=== PATIENT | female | born 1940 | race Caucasian/White ===

== ENCOUNTER 2020-11-28 08:18 | Outpatient (REF) | payer MEDICARE, SELFPAY ==
--- NOTE | ~2020-11-28 | FL_ITS ---
EXAMINATION: FL BARIUM SWALLOW CLINICAL INFORMATION: Dysphagia COMPARISON: None TECHNIQUE: Barium swallow examination is performed using fluoroscopic evaluation in addition to multiple fluoroscopic spot views. The patient is imaged both upright and prone and using both thick and thin sulfate along with effervescent granules. Barium tablet was also administered. Fluoroscopy time: 1.7 minutes DAP: 17 Gycm2 Images: 66 FINDINGS: Swallowing mechanism is normal. No aspiration or penetration is seen. There is impression on the posterior cervical esophagus from vertebral body bony osteophyte. There is abnormal esophageal motility with tertiary contractions. There is a small hiatal hernia with Schatzki ring. Barium tablet passed freely into the stomach. The patient could not tolerate supine position and evaluation for gastroesophageal reflux is limited. No gastroesophageal reflux was observed. FL/FL barium swallow IMPRESSION: Impression on the posterior cervical esophagus from vertebral body bony osteophyte. Abnormal esophageal motility. Small hiatal hernia with Schatzki ring. Very and tablet passed into the stomach. Evaluation for gastroesophageal reflux is limited as the patient could not lie flat. No gastroesophageal reflux was observed.
== END 2020-11-28 08:19 | disposition home or self-care (01) ==
LOC: HO.XRAY 08:18
PROVIDERS: PCP Family Medicine; Visit Provider Family Medicine
DX: R13.12 Dysphagia, oropharyngeal phase (principal)
CPT/HCPCS: 74220

== ENCOUNTER 2025-03-09 13:26 | Outpatient (REF) | payer MEDICARE, SELFPAY ==
--- NOTE | ~2025-03-09 | XR_ITS ---
CLINICAL HISTORY: M25.559 - Pain in unspecified hip Radiograph of the pelvis, single view Comparison: None available Findings: No fracture or dislocation. Severe degenerative change of the hips, jzlal-ikkzccv-zwex-left. Mild degenerative change of the pubic symphysis and sacroiliac joints. Moderate to severe lower lumbar degenerative change. No acute soft tissue abnormality. Impression: No acute findings. Severe degenerative change of the hips. This document has been electronically signed by: Luz Dunne MD on 03/10/2025 15:06:53
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
--- OUTSIDE RECORDS SUMMARY | 2025-03-09 15:27 | XMS_ITS | Encounter Summary ---
Author Organization [facility] Address [address] [place] [address] [place] [address] Phone Care Team Providers Care Small Parts Assembler Name Role Phone Sam Pagan DO Primary Care Provider [phone] Encounter Details Date Type Department Care Team (Late st Contact Info) Description 03/02/2025 Procedure Pass OR Admitting Dept - Virtual Department [address] [place] [address] Social History Tobacco Use Types Packs/Day Years Used Date Smoking Tobacco: Never Passive Smoke Exposure: Never Smokeless Tobacco: Never Alcohol Use Standard Drinks/Week Comments Never 0 (1 standard drink = 0.6 oz pur e alcohol) Education Answer Date Recorded Are you interested in more education? Not on nancy e 11/15/2024 Are you concerned about learning? Not on file 11/15/2024 No 11/15/2024 No 11/15/2024 Digital Access Answer Date Recorded No 11/15/2024 No 11/15/2024 Reliable internet access at home? Not on file 11/15/2024 Device with a working camera? Not on file Comments Unknown Sex and Gender Information Value Date Recorded Sex Assigned at Not on file Legal Sex Female 10:11 PM EDT Gender Identity Not on file Sexual Orientation Not on file documented as of this encounter Plan of Treatment Not on file documented as of this encounter Visit Diagnoses Not on filedocumented in this encounter Additional Health Concerns Assessment Noted Time PHQ-2 Depression Total Score: 0 12/02/19 25 1:20 PM EDT documented as of this encounter Care Teams Small Parts Assembler Relationship Specialty Start Date End Date Sam Pagan DO [address] [place] [address] [email or web address] PCP - General Family Medicine 11/11/24 documented as of this encounter Additional Source Comments The information contained in this document represents components of the legal health record. It is not the complete legal health record.[facility]
--- OUTSIDE RECORDS SUMMARY | 2025-03-09 15:27 | XMS_ITS | Encounter Summary ---
Author Organization [facility] Address [address] [facility] [address] [place] [phone] Phone Care Team Providers Care Superintendent Distribution Name Role Phone Sam Pagan DO Primary Care Provider [phone] Encounter Details Date Type Department Care Team (Late st Contact Info) Description 01/04/2025 Procedure Pass [facility], [address] [address] Social History Tobacco Use Types Packs/Day Years [...] documented as of this encounter Care Teams Superintendent Distribution Relationship Specialty Start Date End Date Sam Pagan DO [address] [place] [address] [email or web address] PCP - General Family Medicine 11/11/24 documented as of this encounter Additional Source Comments The information contained in this document represents components of the legal health record. It is not the complete legal health record.[facility]
--- OUTSIDE RECORDS SUMMARY | 2025-03-09 15:27 | XMS_ITS | Encounter Summary ---
Author Organization [facility] Address [address] [facility] [address] [place] [address] Phone Care Team Providers Care Commercial Loan Reviewer Name Role Phone Sam Pagan DO Primary Care Provider [phone] Encounter Details Date Type Department Care Team (Late st Contact Info) Description 01/04/2025 Procedure Pass [facility], [address] [address] Social History Tobacco Use Types Packs/Day Years [...] documented as of this encounter Care Teams Commercial Loan Reviewer Relationship Specialty Start Date End Date Sam Pagan DO [address] [place] [address] [email or web address] PCP - General Family Medicine 11/11/24 documented as of this encounter Additional Source Comments The information contained in this document represents components of the legal health record. It is not the complete legal health record.[facility]
--- OUTSIDE RECORDS SUMMARY | 2025-03-09 15:27 | XMS_ITS | Encounter Summary ---
Author Organization [facility] Address [address] [facility] [address] [place] [address] Phone Care Team Providers Care Device Processing Engineer Name Role Phone Sam Pagan DO Primary Care Provider [phone] Encounter Details Date Type Department Care Team (Late st Contact Info) Description 01/23/[address] [employer] [facility] [address], [place] [id number] Sam Pagan DO [address] [place] [address] [email or web address] Social History Tobacco Use Types Packs/Day Years [...] on file documented as of this encounter Progress Notes * Tariq Tyson - 01/23/2025 11:17 AM EDT Pt called in, will be changing insurance to [facility] in February. Central Support Instructor Looping (Please do not reply to this user; this inbox is not monitored.) Thank you. documented in this encounter Plan of Treatment Not on file documented as of this encounter Visit Diagnoses Not on filedocumented in this encounter Additional Health Concerns Assessment Noted Time PHQ-2 Depression Total Score: 0 12/02/19 25 1:20 PM EDT documented as of this encounter Care Teams Device Processing Engineer Relationship Specialty Start Date End Date Sam Pagan DO [address] [place] [address] [email or web address] PCP - General Family Medicine 11/11/24 documented as of this encounter Additional Source Comments The information contained in this document represents components of the legal health record. It is not the complete legal health record.[facility]
--- OUTSIDE RECORDS SUMMARY | 2025-03-09 15:27 | XMS_ITS | Clinical Summary ---
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 11/08/19 25 Active losartan (COZAAR) 100 MG tablet Take 100 mg by mouth daily. 11/08/19 25 Active zg-fymeqbq-ipj -iron fm-FA-vitK (MULTI FOR HER) 18 mg iron-600 mcg-80 mcg Tab as directed. Ac tive aspirin 81 MG EC tablet Take 81 mg by mouth daily. Active metoprolol tartrate (LOPRESSOR) 75 mg Tab tablet Take 75 mg by mouth 2 (two) times a day. Active MAGNESIUM ORAL Take 300 mg by mouth. Active cholecalcifero l (VITAMIN D3) 5,000 unit tablet Take 5,000 Units by mouth daily. Active cyanocobalamin , vitamin B-12, 500 MCG tablet Take 500 mcg by mouth daily. Active glimepiride (AMARYL) 4 MG tablet Take 4 mg by mouth. 01/20/20 24 Active buPROPion (WELLBUTRIN XL) 300 MG ER 24 hr tablet Take 1 tablet (300 mg total) by mouth every morning. 90 tablet 3 12/06/19 25 Active atorvastatin (LIPITOR) 40 MG tablet Take 40 mg by mouth. 11/08/19 25 Active FREESTYLE DASH 3 PLUS SENSOR Meg 1 each by Miscellaneous route every 14 (fourteen) days. 7 each 1 01/06/20 25 Active simvastatin (ZOCOR) 40 MG tablet Take 40 mg by mouth nightly at bedtime. 025 Discontin ued(No longer taking) Active Problems Problem Noted Date Diagnosed Date Abnormal finding of diagnostic imaging Cervical spinal stenosis 02/28/2025 Spinal stenosis of lumbar re gion without neurogenic claudication 02/28/2025 Neuroforaminal stenosis of cervical spine 2024 Neuroforaminal stenosis of lumbar spine 02/29/20 Peroneal nerve palsy 11/15/2024 Type 2 diabetes mellitus 11/15/2024 Essential hypertension 11/15/2024 Assessment & Plan (12/01/2024 3:49 PM EDT): BP elevated today Recommend checking BP at home record and bring to next visit if still elevated adjust medicine Fibromyalgia 11/15/2024 Microalbuminuria due to type 2 diabetes mellitus 11/15/2024 Assessment & Plan (12/01/2024 2:02 PM EDT): Stable continue losartan Mild major depression 11/15/2024 Assessment & Plan (11/30/2024 9:12 PM EDT): In remission on Wellbutrin Mixed hyperlipidemia 11/15/2024 Assessment & Plan (11/30/2024 9:10 PM EDT): At goal on stain Obese 11/15/2024 Type 2 diabetes mellitus, co ntrolled, with renal complications 11/15/2024 Uncontrolled type 2 diabetes mellitus with hyper glycemia 11/15/2024 Assessment & Plan (12/01/2024 3:50 PM EDT): Patient not at goal declines other medications at this time continue work with diet and exercise we will readdress at next visit patient to get a hemoglobin A1c next week Resolved Problems Problem Noted Date Diagnosed Date Resolved Date Right hip pain 12/01/2024 02/28/2025 Assessment & Plan (12/01/2024 2:03 PM EDT): Patient is under transitions rn care coordinator x-ray of the hip and pelvis Follow-up with chiropractor as planned Encounters Date Type Department Care Team Description 03/02/2025 Procedure Pass OR Admitting Dept - Virtual Department [address] [place] [id number] 01/28/2025 8:49 AM EDT - 01/28/2025 11:59 PM EDT Hospital Encounter [address] [address] Rahul Mejia MD Discharge Disposition: Home or Self Care 01/28/2025 8:49 AM EDT - 01/28/2025 11:59 PM EDT Hospital Encounter [address] [address] Rahul Mejia MD Discharge Disposition: Home or Self Care 01/23/[address] [place] [address] Sam Pagan, 01/05/[address] [place] [address] Sam Pagan, Medication Refill 01/04/2025 1:00 PM EDT Office Visit [facility] [address] [place] [address] [place] [id number] Rahul Mejia MD Osteonecrosis of right hip (Primary Dx); Cervical radiculopathy; Lumbar radiculopathy; Other secondary osteoarthritis of right hip; 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; Primary osteoarthritis of left hip; Uncontrolled type 2 diabetes mellitus with hyperglycemia 01/04/2025 Procedure Pass [address] [address] 01/04/2025 Procedure Pass [facility], Mri - [address] [address] 12/19/2024 Telephone [facility] [address] [place] [address] Sam Pagan DO Referral ([facility]) from Last 3 Months Immunizations Immunization Administration Dates Next Due INFLUENZA, SPLIT VIRUS, TRIV ALENT W/ PRESERVATIVE IM 03/31/2010 Influenza Trivalent Adjuvant ed Preservative free IM 04/06/2024 Influenza, Unspecified Formulation 03/25,03/12/2020,06/13/2019,04/10,02/22/2016,03/08/2015,03/11/2014 ,03/28/2013,03/30/2012,04/14/2011,03/23,04/06/2006 Pneumococcal conjugate PCV13 03/18/2016 Pneumococcal conjugate PCV20 04/06/2024,03/25/20 Pneumococcal polysaccharide PPSV23 03/11/2014 Pneumococcal, Unspecified Formulation 05/11/2001 RSV Vaccine (bivalent) 04/17/2023 Td (adult),2 Lf Tetanus Toxo id, PF, Adsorbed 08/28/2010 Td, unspecified formulation 11/21/1998 Tdap 01/12/2013,12/20/2012 Zoster live 10/27/2011 Zoster recombinant 05/20/2023 Family History Medical History Relation Comments Bladder Cancer Brother 1 Parkinson's disease Brother 2 Diabetes type I Daughter Drug abuse Father Diabetes mellitus Mother Bladder Cancer Sister Relation Status Comments Brother 1 Brother 2 Daughter Alive Father Mother Sister Social History Tobacco Use Types Packs/Day Years Used Date Smoking Tobacco: Never Passive Smoke Exposure: Never Smokeless Tobacco: Never Tobacco Cessation:Counseling Given: Not Answered Alcohol Use Standard Drinks/Week Comments Never 0 [...] on file Sexual Orientation Not on file Last Filed Vital Signs Vital Sign Reading Time Taken Comments Blood Pressure 140/70 12/01/2024 1:31 PM EDT Pulse 73 12/01/2024 1:31 PM EDT Temperature 36.4 C (97.5 F) 12/01/2024 1:31 PM EDT Respiratory Rate - - Oxygen Saturation 97% 12/01/2024 1:31 PM EDT Inhaled Oxygen Concentration - - Weight 71.2 kg (157 lb) 01/28/2025 9:03 AM EDT Height 154.8 cm (5' 0.95 ) 01/28/2025 9:03 AM ED T Body Mass Index 29.71 01/28/2025 9:03 AM EDT Plan of Treatment Health Maintenance Due Date Last Done Comments OSTEOPOROSIS SCREENING INITIAL (ONE-TIME) 2006 Adult Td,Tdap Booster 01/12/2023 01/12/2013 , 12/20/2012, 08/28/2010, Additional history exists ZOSTER VACCINES (3 of 3) 07/15/2023 05/20/2023, 0512/2011 DIABETIC EYE EXAM 11/15/2024 10/04/2010, 07/26/2009 INFLUENZA VACCINE (#1) 2025 , 03/25/2023, 03/12/2020, Additional history exists COVID-19 VACCINE ( season) 2025 04/06/2024, 04/17/2023, 04/07/2021, Additional history exists BLOOD PRESSURE 06/02/2025 12/01/2024 HEMOGLOBIN A1C 06/07/2025 12/06/2024, 07/21/2024 DEPRESSION SCREENING 12/01/2025 12/01/2024 CREATININE LEVEL 12/06/2025 12/06/2024, 07/21/2024 POTASSIUM LEVEL 12/06/2025 12/06/2024, 07/21/2024 RSV VACCINE Completed 04/17/2023 PNEUMOCOCCAL VACCINES (50+ years) Completed 04/06/2024, 03/25/2023, 03/18/2016, Additional history exists HEPATITIS A VACCINES Aged Out No long er eligible based on patient's age to complete this topic HIB VACCINES Aged Out No longer eligi ble based on patient's age to complete this topic MENINGOCOCCAL VACCINES (ACWY) Aged Out No longer eligible based on patient's age to complete this topic MENINGOCOCCAL VACCINES (B) Aged Out N o longer eligible based on patient's age to complete this topic Medical Devices Not on file Procedures Procedure Name Priority Date/Time Associated Diagnosis Comments MRI LUMBAR SPINE (NEURO) WITHOUT CONTRAST Routine 01/28/2025 10:12 AM EDT Lumbar radiculopathy MRI CERVICAL SPINE (NEURO) FOCUS WITHOUT CONTRAST Routine 01/28/2025 9:53 AM EDT Cervical radiculopathy HEMOGLOBIN A1C Routine 12/06/2024 12:31 PM EDT Essential hypertension Mixed hyperlipidemia Uncontrolled type 2 diabetes mellitus with hyperglycemia COMPREHENSIVE METABOLIC PANEL Routine 12/06/2024 12:31 PM EDT Essential hypertension Mixed hyperlipidemia Uncontrolled type 2 diabetes mellitus with hyperglycemia from Last 3 Months or Most Recently Relevant to Health Maintenance Results * MRI LUMBAR SPINE (NEURO) WITHOUT CONTRAST (01/28/2025 10:12 AM EDT) Anatomical Region Laterality Modality L-spine Magnetic Resonan ce 01/31/2025 9:41 AM EDT Impressions 01/31/2025 10:12 AM EDT 1. Extensive degenerative disc disease and facet joint arthropathy in the cervical spine, with mild canal stenosis at multiple levels, and multilevel moderate foraminal stenosis, as discussed above. 2. Left posterior tentorial T2 hypointense lesion with susceptibility probably calcified meningioma. 3. Levoconvex scoliosis of the lumbar spine. 4. Extensive degenerative disc disease and facet joint arthropathy in the lumbar spine, with mild canal stenosis at multiple levels, and multilevel foramina stenosis, as above. 5. L3-L4 right subarticular zone/foraminal disc protrusion with encroachment of the right subarticular zone and right L4 nerve roots. 6. Other findings, as above. RECOMMENDATIONS: Brain MRI with contrast for impression # 2. Narrative 01/31/2025 10:12 AM EDT MRI CERVICAL SPINE (NEURO) FOCUS WITHOUT CONTRAST, MRI LUMBAR SPINE (NEURO) WITHOUT CONTRAST Referring clinician's provided indication for this examination in Epic: * Cervical radiculopathy, no red flags. Lumbar radiculopathy. TECHNIQUE: MRI CERVICAL SPINE (NEURO) FOCUS WITHOUT CONTRAST, MRI LUMBAR SPINE (NEURO) WITHOUT CONTRAST Multi-sequence, multi-planar MRI of the cervical spine was performed without intravenous contrast. Multi-sequence, multi-planar MRI of the lumbar spine was performed without intravenous contrast. COMPARISON: No prior cervical or lumbar spine studies FINDINGS: CERVICAL SPINE: Alignment and Vertebrae: There is mild anterolisthesis at C7-T1. Other vertebral demonstrate normal alignment. Vertebral body height is normal. No compression fracture Marrow: No bone marrow replacing lesion. Discs and Endplates: Loss of disc height at multiple levels from C3-C4 through C6-C7. Spinal Cord: No kassandra cord compression or significant signal abnormality. Centered along the posterior left tentorium there is a 1.7 x 1.4 x 2 cm heterogeneous T2 hypointense lesion with susceptibility, which may represent a calcified meningioma. It extends superiorly along the left inferior occipital convexity and inferiorly in the posterior cranial fossa, in contact and flattens a short segment of the transverse sinus. Soft Tissue: No prevertebral edema. Other findings: Scattered T2 hyperintensities noted on the right mastoid. Findings by level: C2-C3: Mild disc bulge and facet arthropathy. No high-grade spinal canal stenosis. Probably mild left foraminal stenosis. C3-C4: Disc bulge and posterior osteophytic ridging. Uncovertebral arthropathy and facet joint disease. No spinal canal stenosis. Deud-ar-liatzvup right and mild left foraminal stenosis. C4-C5: Disc/osteophyte complex. Uncovertebral arthropathy and facet joint disease. Mild spinal canal stenosis. Moderate right and mild left foraminal stenosis. C5-C6: Disc osteophyte complex. Uncovertebral arthropathy and facet joint disease. Mild spinal canal stenosis. Moderate right and mild to moderate left foraminal stenosis. C6-C7: Disc osteophyte complex. Uncovertebral arthropathy and facet joint disease. No significant spinal canal stenosis. Apge-uj-dntpffvm left and mild right foraminal stenosis. C7-T1: Mild disc bulge and facet arthropathy. No high-grade spinal canal stenosis. Mild bilateral foraminal stenosis. LUMBAR SPINE: Alignment and Vertebrae: Levoconvex scoliosis of the spine. Vertebral alignment and body heights are normal. No compression fracture. Marrow: No bone marrow replacing lesion. Discs and Endplates: There is loss of disc height and signal at L3-L4 and L4-L5. Modic type II endplate changes noted at L4-L5. There is intrinsic T2 and STIR hyperintense signal in the L3-L4 disc. There is subtle STIR hyperintense signal along the endplates without kassandra T1 hypointense signal to suspect kassandra edema. There is a Schmorl's node on the L4 superior endplate and additional smaller Schmorl's node on the L3 superior endplate. Conus: The tip of the conus ends at L1. No compression. Soft Tissues: No prevertebral edema. Other Findings: None. Findings by level: T12-L1: No spinal or foraminal stenosis. L1-L2: No spinal or foraminal stenosis. L2-L3: Mild disc bulge. Asymmetric bulging and/or small protrusion in the left foramina. Facet arthropathy. No significant spinal canal stenosis. Mild left foraminal stenosis. L3-L4: Disc bulge and osteophytic ridging. There is a right subarticular zone/foraminal disc protrusion. There is moderate encroachment of the subarticular zone and right transversing L4 nerve roots. Facet joint hypertrophy and ligamentum flavum thickening. Mild encroachment of the spinal canal. Mild to moderate right and mild left foraminal stenosis. L4-L5: Disc osteophyte complex. There is a tiny central extrusion. Facet hypertrophy and ligamentum flavum thickening. Mild spinal canal stenosis. Onox-dl-pmkcdkpl foraminal stenosis. L5-S1: Disc bulge with a small central disc protrusion abutting the transversing S1 nerve roots. Facet arthropathy. No significant spinal canal stenosis. Mild bilateral foraminal stenosis. Procedure Note Yue Jamison MD - 01/31/2025 MRI CERVICAL SPINE (NEURO) FOCUS WITHOUT CONTRAST, MRI LUMBAR SPINE(NEURO) WITHOUT CONTRAST Referring clinician's provided indication for this examination in Epic: *Cervical radiculopathy, no red flags. Lumbar radiculopathy. TECHNIQUE: MRI CERVICAL SPINE (NEURO) FOCUS WITHOUT CONTRAST, MRI LUMBARSPINE (NEURO) WITHOUT CONTRAST Multi-sequence, multi-planar MRI of the cervical spine was performedwithout intravenous contrast. Multi-sequence, multi-planar MRI of the lumbar spine was performed withoutintravenous contrast. COMPARISON: No prior cervical or lumbar spine studies FINDINGS: CERVICAL SPINE: Alignment and Vertebrae: There is mild anterolisthesis at C7-T1. Othervertebral demonstrate normal alignment. Vertebral body height is normal.No compression fracture Marrow: No bone marrow replacing lesion. Discs and Endplates: Loss of disc height at multiple levels from C3-L3tovidlo C6-C7. Spinal Cord: No kassandra cord compression or significant signal abnormality.Centered along the posterior left tentorium there is a 1.7 x 1.4 x 2 cmheterogeneous T2 hypointense lesion with susceptibility, which mayrepresent a calcified meningioma. It extends superiorly along the leftinferior occipital convexity and inferiorly in the posterior cranialfossa, in contact and flattens a short segment of the transverse sinus. Soft Tissue: No prevertebral edema. Other findings: Scattered T2 hyperintensities noted on the right mastoid. Findings by level: C2-C3: Mild disc bulge and facet arthropathy. No high-grade spinal canalstenosis. Probably mild left foraminal stenosis. C3-C4: Disc bulge and posterior osteophytic ridging. Uncovertebralarthropathy and facet joint disease. No spinal canal stenosis.Mcqi-vm-otttvrwg right and mild left foraminal stenosis. C4-C5: Disc/osteophyte complex. Uncovertebral arthropathy and facet jointdisease. Mild spinal canal stenosis. Moderate right and mild leftforaminal stenosis. C5-C6: Disc osteophyte complex. Uncovertebral arthropathy and facet jointdisease. Mild spinal canal stenosis. Moderate right and mild to moderateleft foraminal stenosis. C6-C7: Disc osteophyte complex. Uncovertebral arthropathy and facet jointdisease. No significant spinal canal stenosis. Aipy-gi-iuweewda left andmild right foraminal stenosis. C7-T1: Mild disc bulge and facet arthropathy. No high-grade spinal canalstenosis. Mild bilateral foraminal stenosis. LUMBAR SPINE: Alignment and Vertebrae: Levoconvex scoliosis of the spine. Vertebralalignment and body heights are normal. No compression fracture. Marrow: No bone marrow replacing lesion. Discs and Endplates: There is loss of disc height and signal at L3-L4 andL4-L5. Modic type II endplate changes noted at L4-L5. There is intrinsicT2 and STIR hyperintense signal in the L3-L4 disc. There is subtle STIRhyperintense signal along the endplates without akssandra T1 hypointensesignal to suspect kassandra edema. There is a Schmorl's node on the D3oiagmvbu endplate and additional smaller Schmorl's node on the L3 superiorendplate. Conus: The tip of the conus ends at L1. No compression. Soft Tissues: No prevertebral edema. Other Findings: None. Findings by level: T12-L1: No spinal or foraminal stenosis. L1-L2: No spinal or foraminal stenosis. L2-L3: Mild disc bulge. Asymmetric bulging and/or small protrusion in theleft foramina. Facet arthropathy. No significant spinal canal stenosis.Mild left foraminal stenosis. L3-L4: Disc bulge and osteophytic ridging. There is a right subarticularzone/foraminal disc protrusion. There is moderate encroachment of thesubarticular zone and right transversing L4 nerve roots. Facet jointhypertrophy and ligamentum flavum thickening. Mild encroachment of thespinal canal. Mild to moderate right and mild left foraminal stenosis. L4-L5: Disc osteophyte complex. There is a tiny central extrusion. Facethypertrophy and ligamentum flavum thickening. Mild spinal canal stenosis.Dimy-mb-meqswfle foraminal stenosis. L5-S1: Disc bulge with a small central disc protrusion abutting thetransversing S1 nerve roots. Facet arthropathy. No significant spinalcanal stenosis. Mild bilateral foraminal stenosis. IMPRESSION: 1. Extensive degenerative disc disease and facet joint arthropathy in thecervical spine, with mild canal stenosis at multiple levels, andmultilevel moderate foraminal stenosis, as discussed above. 2. Left posterior tentorial T2 hypointense lesion with susceptibilityprobably calcified meningioma. 3. Levoconvex scoliosis of the lumbar spine. 4. Extensive degenerative disc disease and facet joint arthropathy in thelumbar spine, with mild canal stenosis at multiple levels, and multilevelforamina stenosis, as above. 5. L3-L4 right subarticular zone/foraminal disc protrusion withencroachment of the right subarticular zone and right L4 nerve roots. 6. Other findings, as above. RECOMMENDATIONS: Brain MRI with contrast for impression # 2. us Rahul Mejia MD IMG MR XSPECIALTY Final Result * MRI CERVICAL SPINE (NEURO) FOCUS WITHOUT CONTRAST (01/28/2025 9:53 AM EDT) Anatomical Region Laterality Modality C-spine Magnetic Resonan ce 01/31/2025 9:41 AM EDT Impressions 01/31/2025 10:12 AM EDT 1. Extensive degenerative disc disease and facet joint arthropathy in the cervical spine, with mild canal stenosis at multiple levels, and multilevel moderate foraminal stenosis, as discussed above. 2. Left posterior tentorial T2 hypointense lesion with susceptibility probably calcified meningioma. 3. Levoconvex scoliosis of the lumbar spine. 4. Extensive degenerative disc disease and facet joint arthropathy in the lumbar spine, with mild canal stenosis at multiple levels, and multilevel foramina stenosis, as above. 5. L3-L4 right subarticular zone/foraminal disc protrusion with encroachment of the right subarticular zone and right L4 nerve roots. 6. Other findings, as above. RECOMMENDATIONS: Brain MRI with contrast for impression # 2. Narrative 01/31/2025 10:12 AM EDT MRI CERVICAL SPINE (NEURO) FOCUS WITHOUT CONTRAST, MRI LUMBAR SPINE (NEURO) WITHOUT CONTRAST Referring clinician's provided indication for this examination in Epic: * Cervical radiculopathy, no red flags. Lumbar radiculopathy. TECHNIQUE: MRI CERVICAL SPINE (NEURO) FOCUS WITHOUT CONTRAST, MRI LUMBAR SPINE (NEURO) WITHOUT CONTRAST Multi-sequence, multi-planar MRI of the cervical spine was performed without intravenous contrast. Multi-sequence, multi-planar MRI of the lumbar spine was performed without intravenous contrast. COMPARISON: No prior cervical or lumbar spine studies FINDINGS: CERVICAL SPINE: Alignment and Vertebrae: There is mild anterolisthesis at C7-T1. Other vertebral demonstrate normal alignment. Vertebral body height is normal. No compression fracture Marrow: No bone marrow replacing lesion. Discs and Endplates: Loss of disc height at multiple levels from C3-C4 through C6-C7. Spinal Cord: No kassandra cord compression or significant signal abnormality. Centered along the posterior left tentorium there is a 1.7 x 1.4 x 2 cm heterogeneous T2 hypointense lesion with susceptibility, which may represent a calcified meningioma. It extends superiorly along the left inferior occipital convexity and inferiorly in the posterior cranial fossa, in contact and flattens a short segment of the transverse sinus. Soft Tissue: No prevertebral edema. Other findings: Scattered T2 hyperintensities noted on the right mastoid. Findings by level: C2-C3: Mild disc bulge and facet arthropathy. No high-grade spinal canal stenosis. Probably mild left foraminal stenosis. C3-C4: Disc bulge and posterior osteophytic ridging. Uncovertebral arthropathy and facet joint disease. No spinal canal stenosis. Eeki-jq-lcwyeuso right and mild left foraminal stenosis. C4-C5: Disc/osteophyte complex. Uncovertebral arthropathy and facet joint disease. Mild spinal canal stenosis. Moderate right and mild left foraminal stenosis. C5-C6: Disc osteophyte complex. Uncovertebral arthropathy and facet joint disease. Mild spinal canal stenosis. Moderate right and mild to moderate left foraminal stenosis. C6-C7: Disc osteophyte complex. Uncovertebral arthropathy and facet joint disease. No significant spinal canal stenosis. Dtgd-gk-rcerexdc left and mild right foraminal stenosis. C7-T1: Mild disc bulge and facet arthropathy. No high-grade spinal canal stenosis. Mild bilateral foraminal stenosis. LUMBAR SPINE: Alignment and Vertebrae: Levoconvex scoliosis of the spine. Vertebral alignment and body heights are normal. No compression fracture. Marrow: No bone marrow replacing lesion. Discs and Endplates: There is loss of disc height and signal at L3-L4 and L4-L5. Modic type II endplate changes noted at L4-L5. There is intrinsic T2 and STIR hyperintense signal in the L3-L4 disc. There is subtle STIR hyperintense signal along the endplates without kassandra T1 hypointense signal to suspect kassandra edema. There is a Schmorl's node on the L4 superior endplate and additional smaller Schmorl's node on the L3 superior endplate. Conus: The tip of the conus ends at L1. No compression. Soft Tissues: No prevertebral edema. Other Findings: None. Findings by level: T12-L1: No spinal or foraminal stenosis. L1-L2: No spinal or foraminal stenosis. L2-L3: Mild disc bulge. Asymmetric bulging and/or small protrusion in the left foramina. Facet arthropathy. No significant spinal canal stenosis. Mild left foraminal stenosis. L3-L4: Disc bulge and osteophytic ridging. There is a right subarticular zone/foraminal disc protrusion. There is moderate encroachment of the subarticular zone and right transversing L4 nerve roots. Facet joint hypertrophy and ligamentum flavum thickening. Mild encroachment of the spinal canal. Mild to moderate right and mild left foraminal stenosis. L4-L5: Disc osteophyte complex. There is a tiny central extrusion. Facet hypertrophy and ligamentum flavum thickening. Mild spinal canal stenosis. Yifb-ke-oanqpdlw foraminal stenosis. L5-S1: Disc bulge with a small central disc protrusion abutting the transversing S1 nerve roots. Facet arthropathy. No significant spinal canal stenosis. Mild bilateral foraminal stenosis. Procedure Note Yue Jamison MD - 01/31/2025 MRI CERVICAL SPINE (NEURO) FOCUS WITHOUT CONTRAST, MRI LUMBAR SPINE(NEURO) WITHOUT CONTRAST Referring clinician's provided indication for this examination in Epic: *Cervical radiculopathy, no red flags. Lumbar radiculopathy. TECHNIQUE: MRI CERVICAL SPINE (NEURO) FOCUS WITHOUT CONTRAST, MRI LUMBARSPINE (NEURO) WITHOUT CONTRAST Multi-sequence, multi-planar MRI of the cervical spine was performedwithout intravenous contrast. Multi-sequence, multi-planar MRI of the lumbar spine was performed withoutintravenous contrast. COMPARISON: No prior cervical or lumbar spine studies FINDINGS: CERVICAL SPINE: Alignment and Vertebrae: There is mild anterolisthesis at C7-T1. Othervertebral demonstrate normal alignment. Vertebral body height is normal.No compression fracture Marrow: No bone marrow replacing lesion. Discs and Endplates: Loss of disc height at multiple levels from C3-J8ygvchvj C6-C7. Spinal Cord: No kassandra cord compression or significant signal abnormality.Centered along the posterior left tentorium there is a 1.7 x 1.4 x 2 cmheterogeneous T2 hypointense lesion with susceptibility, which mayrepresent a calcified meningioma. It extends superiorly along the leftinferior occipital convexity and inferiorly in the posterior cranialfossa, in contact and flattens a short segment of the transverse sinus. Soft Tissue: No prevertebral edema. Other findings: Scattered T2 hyperintensities noted on the right mastoid. Findings by level: C2-C3: Mild disc bulge and facet arthropathy. No high-grade spinal canalstenosis. Probably mild left foraminal stenosis. C3-C4: Disc bulge and posterior osteophytic ridging. Uncovertebralarthropathy and facet joint disease. No spinal canal stenosis.Ztlo-ij-wpalxpvd right and mild left foraminal stenosis. C4-C5: Disc/osteophyte complex. Uncovertebral arthropathy and facet jointdisease. Mild spinal canal stenosis. Moderate right and mild leftforaminal stenosis. C5-C6: Disc osteophyte complex. Uncovertebral arthropathy and facet jointdisease. Mild spinal canal stenosis. Moderate right and mild to moderateleft foraminal stenosis. C6-C7: Disc osteophyte complex. Uncovertebral arthropathy and facet jointdisease. No significant spinal canal stenosis. Jisy-za-ungnyteu left andmild right foraminal stenosis. C7-T1: Mild disc bulge and facet arthropathy. No high-grade spinal canalstenosis. Mild bilateral foraminal stenosis. LUMBAR SPINE: Alignment and Vertebrae: Levoconvex scoliosis of the spine. Vertebralalignment and body heights are normal. No compression fracture. Marrow: No bone marrow replacing lesion. Discs and Endplates: There is loss of disc height and signal at L3-L4 andL4-L5. Modic type II endplate changes noted at L4-L5. There is intrinsicT2 and STIR hyperintense signal in the L3-L4 disc. There is subtle STIRhyperintense signal along the endplates without kassandra T1 hypointensesignal to suspect kassandra edema. There is a Schmorl's node on the Z7tgeddmaz endplate and additional smaller Schmorl's node on the L3 superiorendplate. Conus: The tip of the conus ends at L1. No compression. Soft Tissues: No prevertebral edema. Other Findings: None. Findings by level: T12-L1: No spinal or foraminal stenosis. L1-L2: No spinal or foraminal stenosis. L2-L3: Mild disc bulge. Asymmetric bulging and/or small protrusion in theleft foramina. Facet arthropathy. No significant spinal canal stenosis.Mild left foraminal stenosis. L3-L4: Disc bulge and osteophytic ridging. There is a right subarticularzone/foraminal disc protrusion. There is moderate encroachment of thesubarticular zone and right transversing L4 nerve roots. Facet jointhypertrophy and ligamentum flavum thickening. Mild encroachment of thespinal canal. Mild to moderate right and mild left foraminal stenosis. L4-L5: Disc osteophyte complex. There is a tiny central extrusion. Facethypertrophy and ligamentum flavum thickening. Mild spinal canal stenosis.Johe-jk-faixmwqs foraminal stenosis. L5-S1: Disc bulge with a small central disc protrusion abutting thetransversing S1 nerve roots. Facet arthropathy. No significant spinalcanal stenosis. Mild bilateral foraminal stenosis. IMPRESSION: 1. Extensive degenerative disc disease and facet joint arthropathy in thecervical spine, with mild canal stenosis at multiple levels, andmultilevel moderate foraminal stenosis, as discussed above. 2. Left posterior tentorial T2 hypointense lesion with susceptibilityprobably calcified meningioma. 3. Levoconvex scoliosis of the lumbar spine. 4. Extensive degenerative disc disease and facet joint arthropathy in thelumbar spine, with mild canal stenosis at multiple levels, and multilevelforamina stenosis, as above. 5. L3-L4 right subarticular zone/foraminal disc protrusion withencroachment of the right subarticular zone and right L4 nerve roots. 6. Other findings, as above. RECOMMENDATIONS: Brain MRI with contrast for impression # 2. Rahul Mejia MD [facility] Final Result * (ABNORMAL) Comprehensive metabolic panel (12/06/2024 12:31 PM EDT) SODIUM 142 133 - 146 mmol/L [facility] POTASSIUM 4.1 3.3 - 5.1 mmol/L [facility] CHLORIDE 102 96 - 108 mmol/L [facility] CO2 29 21 - 35 mmol/L [facility] BUN 34(H) 6 - 19 mg/dL [facility] CREATININE 0.90 0.5 - 1.5 mg/dL [facility] GLUCOSE 138(H) 70 - 99 mg/dL [facility] ALBUMIN 4.2 3.9 - 4.8 g/dL [facility] TOTAL PROTEIN 7.2 6.5 - 8.0 g/dL [facility] CALCIUM 10.0 8.4 - 10.3 mg/dL [facility] ALKALINE PHOSPHATASE 129(H) 39 - 117 U/L [facility] TOTAL BILIRUBIN 0.5 0.0 - 1.2 mg/dL [facility] AST 23 0 - 37 U/L [facility] ALT 25 0 - 40 U/L [facility] GLOBULIN 3.0 1 - 4.8 g/dL [facility] EGFR 63 >59 mL/min/1.7 3m2 [facility] Comment:Estimated glomerular filtration rate calculated using the CKD-EPI refit equation. ANION GAP 15 10 - 20 mmol/L [facility] Blood 12/06/2024 12:3 1 PM EDT 12/06/2024 12:33 PM EDT Sam Pagan DO LAB BLOOD ORDERABLES Final Res ult [address] [address] * (ABNORMAL) Hemoglobin A1c (12/06/2024 12:31 PM EDT) HEMOGLOBIN A1C 7.9(H) 4.3 - 5.8 % [facility] Blood 12/06/2024 12:3 1 PM EDT 12/06/2024 12:33 PM EDT us aSm Pagan DO LAB BLOOD ORDERABLES Final Res ult [facility] [address] [place] [address] from Last 3 Months or Most Recently Relevant to Health Maintenance Insurance MEDICARE PART A & B [facility] MEDICARE REPLACEMENT MEDICARE PART A & B [facility] MEDICARE REPLACEMENT MEDICARE PART A & B [facility] MEDICARE REPLACEMENT MEDICARE PART A & B MEDICARE REPLACEMENT MEDICARE PART A & B MEDICARE REPLACEMENT Member Subscriber Plan / Payer (Ef fective 2025-) Name:Paula Boydlis Relation to Subscriber:Self Name:Debby Boyd Payer ID:[id number] (NAIC) Group ID:Not on file Type:Medicare Address: [place] [id number] MEDICARE PART A & B [facility] [place]ARE [place] [address] [place] [address] Care Teams Metal Furniture Assembly Supervisor Relationship Specialty Start Date End Date Sam Pagan DO [address] [place] [email or web address] PCP - General Family Medicine 11/11/24 Additional Source Comments The information contained in this document represents components of the legal health record. It is not the complete legal health record.[facility]
--- OUTSIDE RECORDS SUMMARY | 2025-03-09 15:27 | XMS_ITS | Encounter Summary ---
Author Organization [facility] Address [address] [facility] [address] [place] [address] Phone Care Team Providers Care Dental Technology Advisor Name Role Phone Sam Pagan DO Primary Care Provider [phone] Reason for Referral * Consultation (Routine) - Pending Review Specialty Diagnoses / Procedures Referred By Contac t Referred To Contact To Najera PA-C, MBA [address] [place] [phone] Phone: tel: fax: mailto: Referral ID Status Reason Start Date Expiration Date V isits Requested Visits Authorized [id number] Pending Review 12/19/2024 12/19/2025 1 1 Reason for Visit * Reason Onset Date Comments Referral 12/19/2024 [facility] Encounter Details Date Type Department Care Team (Late st Contact Info) Description 12/19/[address] [place] [address] Sam Pagan DO [address] [place] [address] [email or web address] Referral ([facility]) Social History Tobacco Use Types Packs/Day Years [...] as of this encounter Progress Notes * Maria De Jesus Kerns - 12/19/2024 9:13 AM EDT [facility] Top Smart Phrases: Referral Request 1. Name of the office where the patient has been seen/requests to be seen: [facility] 2. Reason for referral/specialist appointment and the diagnosis code: Bone on Bone PERLA hips 2A. Have you seen this provider before for this same problem? YES/NO: no 2B. If this is a new problem, is your PCP aware of your symptoms? YES/NO: yes 3. Date of appointment(s):N/A 4. Name of specialist provider: N/A 5. NPI number to enter for referral authorization (enter n/a if not available): N/A 6. Number of visits requested for referral: 6 7. Fax number of specialist office to send referral authorization: N/A documented in this encounter Plan of Treatment Scheduled Referrals Name Type Priority Associated Diagnoses Order Schedule Ambulatory referral to [facility] Orthopedics - Employed Practices Outpatient Referral Routine Ordered: 12/19/2024 documented as of this encounter Visit Diagnoses Not on filedocumented in this encounter Additional Health Concerns Assessment Noted Time PHQ-2 Depression Total Score: 0 12/02/19 25 1:20 PM EDT documented as of this encounter Care Teams Dental Technology Advisor Relationship Specialty Start Date End Date Sam Pagan DO [address] [place] [address] [email or web address] PCP - General Family Medicine 11/11/24 documented as of this encounter Additional Source Comments The information contained in this document represents components of the legal health record. It is not the complete legal health record.[facility]
== END 2025-03-09 13:27 | disposition home or self-care (01) ==
LOC: HO.HOSX 13:26
PROVIDERS: Visit Provider Orthopaedic Surgery
DX: M16.11 Unilateral primary osteoarthritis, right hip (principal)
CPT/HCPCS: 72170; 99202

== ENCOUNTER 2025-03-09 13:46 | Outpatient (AMB) | payer MEDICARE, SELFPAY ==
--- NOTE | 2025-03-09 14:14 | A.OFFVIS_ITS ---
Intake Visit Reasons: PERFORMING ARTIST-Rt Hip Pain Intake Note: Debby is an 84 year old female who presents today as a New Patient with complaints of Right Hip Pain. Patient reports ongoing left hip pain for about one year now. She had an onset of pain after falling in the doorway - she was told that this would improve on its own. The pain is felt in the groin region as well as the anterior hip. The pain is worsened with activities such as prolonged walking, standing, stairs, putting on shoes and getting in and out of the car. She has previously tried and failed physical therapy, NSAIDS, activity modification and weight reduction with no relief. She uses a wheelchair for long distances but is using a cane or walker at home. Intra-articular injection? 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 Patient reports ongoing left hip pain for about one year now. She had an onset of pain after falling in the doorway - she was told that this would improve on its own. The pain is felt in the groin region as well as the anterior hip. The pain is worsened with activities such as prolonged walking, standing, stairs, putting on shoes and getting in and out of the car. She has previously tried and failed physical therapy, NSAIDS, activity modification and weight reduction with no relief. She uses a wheelchair for long distances but is using a cane or walker at home. She would like to be ambulatory and engage in daily activities without pain. Hx of DVT, Fibromyalgia,DM. Diabetes- HGB A1C 7.2 (Jul 2024) [facility] Surgical History (Updated 02/24/25 @ 11:15 by Any Bill [facility] [place] [facility]) History of hysterotomy History of hammer toe correction Physical Exam Exam Exam: Pleasant woman no acute distress. She is sitting in a wheelchair but she can stand and support her own weight. She has a antalgic gait. No internal rotation bilateral hips. I can flex her up to 90. Positive impingement. Dorsalis pedis pulse present bilaterally warm well-perfused feet with be in a static changes but no edema. Results Reviewed Results Reviewed: I personally reviewed relevant radiographs. Severe degenerative changes bilateral hips right greater than left. On the right there is extensive joint space narrowing with obliteration of the sphericity of the superior right femoral head and extensive osteophyte formation. Pelvic tilt present accounting for shortening of the right lower extremity. She also has severe disease of the left hip although less significant than the right. Assessment & Plan Assessment & Plan (1) Osteoarthritis of right hip: Code(s): M16.11 - Unilateral primary osteoarthritis, right hip Category: Medical Plan: This is a very pleasant 84-year-old woman with severe osteoarthritis of the right hip. She has functional leg length discrepancy as well as a history of lumbar radiculopathy. She is minimally ambulatory secondary to her arthritis. She would like to be more active. She feels that she is healthy and frustrated that she can not engage in daily activities and a meaningful way. She has a history of diabetes with a hemoglobin A1c less than 7.5. She has a history of DVT. We discussed treatment options including nonoperative management, injections as well as surgery. I do not see a role for injections in her treatment given the severity of her disease, her age and her diabetes. She is severely limited by her disease and I recommend right hip arthroplasty. Clinically she is limited to such an extent that the benefits of surgery are self evident. The risks of surgery were discussed. I explained the risk of infection, fracture, dislocation as well as persistent leg length discrepancy ( be it real or perceived) as well as the risk of injury to nerve, blood vessels which may result in numbness, weakness, continued pain as well as medical complications such as blood clots, pulmonary embolism even organ failure resulting in loss of life or loss of limb. I answered her questions to the best of my abilities. She would like to proceed forward with right hip arthroplasty. She will need medical clearance as well as a plan going forward with her DVT history. I explained this to her. She is aware. Orders: Orders XR pelvis 1-2V 03/09/25 M25.559 - Pain in unspecified hip Coding Level of Care Code New Pt Level 4 (69561) Diagnoses Osteoarthritis of right hip M16.11
== END 2025-03-09 14:46 | disposition home or self-care (01) ==
LOC: HO.HOS 13:47
PROVIDERS: PCP Family Medicine; Visit Provider Orthopaedic Surgery
DX: M16.11 Unilateral primary osteoarthritis, right hip (principal)
CPT/HCPCS: 99204

== ENCOUNTER → 2025-03-09 13:52 | Outpatient (BNV) | payer MEDICARE, SELFPAY | PROVIDERS: Visit Provider Radiology Diagnostic Radiology | DX: M16.0 Bilateral primary osteoarthritis of hip (principal) | CPT/HCPCS: 72170 ==

== ENCOUNTER 2025-04-17 16:08 | Outpatient (REF) | payer OTHER, SELFPAY ==
--- OUTSIDE RECORDS SUMMARY | 2025-04-13 15:00 | XMS_ITS | Encounter Summary ---
Author Organization [facility] Address [address] [facility] [address] [place] [address] Phone Care Team Providers Care Stone And Plate Preparer Apprentice Name Role Phone Sam Pagan DO Primary Care Provider [phone] Reason for Visit * Reason Comments Hip Pain X32 months. Right le g. Radiating down leg to calf. Hip replacement scheduled for Encounter Details Date Type Department Care Team (Latest Contact Info) Description 04/13/2025 3:00 PM EDT Office Visit [facility] [address] [address] Sam Pagan DO [address] [place] [address] [email or web address] Uncontrolled type 2 diabetes mellitus with hyperglycemia (Primary Dx); Essential hypertension; Type 2 diabetes mellitus with diabetic microalbuminuria, without long-term current use of insulin; Osteonecrosis of right hip; Microalbuminuria due to type 2 diabetes mellitus; Mild major depression; Fibromyalgia; Peroneal nerve palsy, unspecified laterality Social History Tobacco Use Types Packs/Day Years [...] on file documented as of this encounter Last Filed Vital Signs Vital Sign Reading Time Taken Comments Blood Pressure 112/62 04/13/2025 3:04 PM EDT Pulse 72 04/13/2025 3:04 PM EDT Temperature 36.7 C (98 F) 04/13/2025 3:04 PM EDT Respiratory Rate - - Oxygen Saturation 97% 04/13/2025 3:04 PM EDT Inhaled Oxygen Concentration - - Weight - - Height - - Body Mass Index - - documented in this encounter Patient Instructions * Patient Instructions* Sam Pagan DO - 04/13/2025 3:00 PM EDT Start gabapentin for pain Follow up with ortho as planned Regarding your blood pressure continue current medications check BP at home record and bring to next visit documented in this encounter Progress Notes * Sam Pagan DO - 04/13/2025 3:00 PM EDT Subjective: History of Present Illness Debby Boyd is an 84-year-old female who presents with right-sided leg pain and swelling. She experiences sharp, burning pain on the right side, starting in the hip and radiating down the leg into the calf, with associated swelling and discoloration of the knees. The knees turn black whenwalking and improve with elevation. Pain in the groin area is also present. The severity of the pain necessitates sleeping in a recliner, as lying in bed is uncomfortable. She uses a walker at home and requires a wheelchair for longer distances. Instability prevents her from using a cane, and she needs to hold onto liu for support. She has been unable to refill her cholesterol medication and ibuprofen for three months through hercurrent provider but managed a refill through a virtual visit with another provider. She currently takes Tylenol, which improves her sleep duration from two to four hours. She has not been doing any physical therapy and is waiting for surgery. No cold feet, but dark spots are present on them. Patient relates that her average blood sugar on her continuous glucose monitors come down to 6.9 send she has been eating better diet Patient Active Problem List Diagnosis Date Noted Abnormal finding on MRI of brain 03/20/2025 Osteonecrosis of right hip 03/17/2025 Primary osteoarthritis of left hip 03/17/2025 Preoperative evaluation to rule out surgical contraindication 03/17/2025 Abnormal finding of diagnostic imaging 02/28/2025 Cervical spinal stenosis 02/28/2025 Spinal stenosis of lumbar region without neurogenic claudication 02/28/2025 Neuroforaminal stenosis of cervical spine 02/28/2025 Neuroforaminal stenosis of lumbar spine 02/28/2025 Peroneal nerve palsy 11/15/2024 Type 2 diabetes mellitus 11/15/2024 Essential hypertension 11/15/2024 Fibromyalgia 11/15/2024 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 Objective: Physical Exam VITALS: BP- 112/62 Patient is in no acute distress Musculoskeletal Presents in a wheelchair Dorsal pedis and posterior tibial pulses 1/4 and equal bilaterally Tenderness on palpation of the right lateral hip and over the greater trochanter and in the anterior right hip Knees no discoloration noted today straight leg raising positive right for radiculopathy to the midcalf Physical Exam Data Review 1. Uncontrolled type 2 diabetes mellitus with hyperglycemia (Primary) 2. Essential hypertension 3. Type 2 diabetes mellitus with diabetic microalbuminuria, without long-term current use of insulin 4. Osteonecrosis of right hip 5. Microalbuminuria due to type 2 diabetes mellitus 6. Mild major depression 7. Fibromyalgia 8. Peroneal nerve palsy, unspecified laterality Other orders - gabapentin (NEURONTIN) 100 MG capsule Dispense: 90 capsule; Refill: 3 Assessment & Plan Osteonecrosis of right hip with right lower extremity radiculopathy Chronic osteonecrosis with radiculopathy causing sharp, burning pain radiating to the calf. Possible nerve impingement suspected. Good peripheral pulses. -Hip replacement planned for June at [facility] -- Encouraged maintaining strength through activity for post-surgical recovery. Right lumbar radiculopathy versus piriformis syndrome - Prescribed gabapentin 100 mg: two at bedtime, one in the morning. Monitor for drowsiness, adjust dosage if necessary. - Continue Tylenol for pain management, aids sleep. - Sent gabapentin prescription to [facility] in [place]. Regarding diabetes mellitus is now at goal continue current diet and medication Return if symptoms worsen or fail to improve. Patient Instructions Start gabapentin for pain Follow up with ortho as planned Regarding your blood pressure continue current medications check BP at home record and bring to next visit I obtained verbal consent from the patient or their proxy to record this visit for purposes of producing a draft of the encounter documentation. 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 major depression Major depressive disorder, single episode, mild Fibromyalgia Unspecified myalgia and myositis Peroneal nerve palsy, unspecified laterality documented in this encounter Additional Health Concerns Assessment Noted Time PHQ-2 Depression Total Score: 0 12/02/19 25 1:20 PM EDT documented as of this encounter Care Teams Stone And Plate Preparer Apprentice Relationship Specialty Start Date End Date Sam Pagan DO [address] [place] [email or web address] PCP - General Family Medicine 11/11/24 documented as of this encounter Additional Source Comments The information contained in this document represents components of the legal health record. It is not the complete legal health record.[facility]
--- NOTE | ~2025-04-17 | US_ITS ---
EXAMINATION: US TRIPLEX LOWER EXTREMITY, BILATERAL CLINICAL INFORMATION: Lower extremity edema, bilateral COMPARISON: None available. TECHNIQUE: Color-flow triplex imaging with spectral analysis and compression Doppler were performed on the bilateral lower extremities. FINDINGS: Respiratory variation, normal compression and augmented flow are noted throughout the bilateral lower extremities. The visualized common femoral vein, superficial femoral vein, profunda femoral vein, popliteal vein and midcalf peroneal and posterior tibial venous segments show no evidence of deep venous thrombosis bilaterally. US/US venous duplex LE BI IMPRESSION: No evidence of deep venous thrombosis involving the bilateral lower extremities. Electronically signed by: Harpal Najera MD 04/17/2025 05:22 PM EDT
--- OUTSIDE RECORDS SUMMARY | 2025-04-17 19:01 | XMS_ITS | Encounter Summary ---
Author Organization [facility] Address [address] [facility] [address] [place] [address] Phone Care Team Providers Care Staff Veterinarian Name Role Phone Sam Pagan DO Primary Care Provider [phone] Reason for Visit * Reason Onset Date Comments Forms & Paperwork 03/27/2025 Change of insu bhumi Encounter Details Date Type Department Care Team ([facility] st Contact Info) Description 03/27/2025 Telephone [facility] [address] [place] [address] [email or web address] Forms & Paperwork (Change of insurance) Social History Tobacco Use Types Packs/Day Years [...] as of this encounter Progress Notes * Sari Ruelas MA - 04/17/2025 10:09 AM EDT Receive new form and placed on Dr Pagan desk for completion. * Juani Lu CMA - 04/07/2025 10:26 AM EDT Returned incomplete form back to fax number provided as the form will be illegible once re scanned.Asked for a new clear and visible copy be sent. * Audrey Corona - 04/06/2025 8:43 AM EDT Daniel called in to check status of this chronic conditions form. See media 04/04. Form needs to be completed and signed by PCP and faxed to [facility] at [phone]. This form must be completed and faxed back to [facility] prior to 04/22 or pt will lose insurance coverage. Caller stated pt is extremely anxious about this form being completed timely. Please contact and advise. Central Support Instrumentation Specialist (Please do not reply to this user; this inbox is not monitored.) Thank you. * Medina Saul - 04/05/2025 2:21 PM EDT Daneil from [facility] called in to follow up on the status of this form. Please contact and advise. Central Support Instrumentation Specialist (Please do not reply to this user; this inbox is not monitored.) Thank you. * Juani Lu CMA - 03/31/2025 4:10 PM EDT No paperwork received in media * Nai Stanley - 03/31/2025 12:21 PM EDT [facility] sent a form about change of insurance and pt wanted ot know if it was completed and [facility] Central Support Instrumentation Specialist (Please do not reply to this user; this inbox is not monitored.) Thank you. documented in this encounter Plan of Treatment Not on file documented as of this encounter Visit Diagnoses Not on filedocumented in this encounter Additional Health Concerns Assessment Noted Time PHQ-2 Depression Total Score: 0 12/02/19 25 1:20 PM EDT documented as of this encounter Care Teams Staff Veterinarian Relationship Specialty Start Date End Date Sam Pagan DO [address] [place] [id number] [email or web address] PCP - General Family Medicine 11/11/24 documented as of this encounter Additional Source Comments The information contained in this document represents components of the legal health record. It is not the complete legal health record.[facility]
--- OUTSIDE RECORDS SUMMARY | 2025-04-17 19:01 | XMS_ITS | Encounter Summary ---
Author Organization [facility] Address [address] [place] [address] [place] [address] Phone Care Team Providers Care Lobbyist Name Role Phone Sam Pagan DO Primary Care Provider [phone] Encounter Details Date Type Department Care Team (Late st Contact Info) Description 03/02/2025 Procedure Pass [place] Admitting Dept - Virtual Department [address] [place] [address] Social History Tobacco Use Types Packs/Day Years [...] documented as of this encounter Care Teams Lobbyist Relationship Specialty Start Date End Date Sam Pagan DO [address] [place] [address] [email or web address] PCP - General Family Medicine 11/11/24 documented as of this encounter Additional Source Comments The information contained in this document represents components of the legal health record. It is not the complete legal health record.[facility]
--- OUTSIDE RECORDS SUMMARY | 2025-04-17 19:01 | XMS_ITS | Encounter Summary ---
Author Organization [facility] Address [address] [facility] [address] [place] [address] Phone Care Team Providers Care Machine Tool Mechanic Name Role Phone Sam Pagan DO Primary Care Provider [phone] Encounter Details Date Type Department Care Team (Late st Contact Info) Description 01/23/2025 Telephone [facility] [address] [place] [address] Sam Pagan DO [address] [place] [address] [email or web address] Social History Tobacco Use Types Packs/Day Years [...] called in, will be changing insurance to [employer] in February. Central Support Automotive Services Manager (Please do not reply to this user; this inbox is not monitored.) Thank you. documented in this encounter Plan of Treatment Not on file documented as of this encounter Visit Diagnoses Not on filedocumented in this encounter Additional Health Concerns Assessment Noted Time PHQ-2 Depression Total Score: 0 12/02/19 25 1:20 PM EDT documented as of this encounter Care Teams Machine Tool Mechanic Relationship Specialty Start Date End Date Sam Pagan DO [address] [place] [address] [email or web address] PCP - General Family Medicine 11/11/24 documented as of this encounter Additional Source Comments The information contained in this document represents components of the legal health record. It is not the complete legal health record.[facility]
--- OUTSIDE RECORDS SUMMARY | 2025-04-17 19:01 | XMS_ITS | Encounter Summary ---
Author Organization [facility] Address [address] [facility] [address] [place] [address] Phone Care Team Providers Care Safety Engineer Name Role Phone Sam Pagan DO Primary Care Provider [phone] Encounter Details Date Type Department Care Team (Late st Contact Info) Description 04/17/2025 Orders Only [facility] Medicine [address] [place] [address] Sam Pagan DO [address] [place] [address] [email or web address] Social History Tobacco Use Types Packs/Day Years [...] documented as of this encounter Care Teams Safety Engineer Relationship Specialty Start Date End Date Sam Pagan DO [address] [place] [address] [email or web address] PCP - General Family Medicine 11/11/24 documented as of this encounter Additional Source Comments The information contained in this document represents components of the legal health record. It is not the complete legal health record.[facility]
--- OUTSIDE RECORDS SUMMARY | 2025-04-17 19:01 | XMS_ITS | Encounter Summary ---
Author Organization [facility] Address [address] [facility] [address] [place] [address] Phone Care Team Providers Care Food Technician Name Role Phone Sam Pagan DO Primary Care Provider [phone] Reason for Visit * Reason Onset Date Comments Triage 04/17/2025 Red + hallucinat ions + 04/14 Encounter Details Date Type Department Care Team (Late st Contact Info) Description 04/17/2025 Telephone [employer] [facility] [address] [place] [address] Sam Pagan DO [address] [place] [address] [email or web address] Triage (Red + hallucinations + 04/14) Social History Tobacco Use Types Packs/Day Years [...] as of this encounter Progress Notes * Rachael Melton RN - 04/17/2025 2:11 PM EDT Debby updated per PCP, red flag sx reviewed that would require ER assessment. She verbalizes understanding and agreement. She states she feels better now . Encouraged to call back with any furtherquestions or concerns * Audrey Corona - 04/17/2025 12:14 PM EDT Pt called back in stating she missed a call. Per triage chat, no outgoing calls were made. Advised pt should wait for a return call. FYI Central Support Land Surveying Survey Worker (Please do not reply to this user; this inbox is not monitored.) Thank you. * Ketty Robles RN - 04/17/2025 11:37 AM EDT Spoke with patient. States she saw Dr. Pagan last 04/13 who started her on gabapentin. On Thursday night she took 200 mg and 100 mg on Thursday morning. Thursday night she started shaking all over and reports having hallucinations. The artificial lilly were moving. The fireplace started moving back and forth. I quit taking them. The episodes are happening less. They last 3-4 minutes at a time. Currently the fire place has 2 logs with animal heads moving up and down. She is aware this is not real. I feel high. No confusion. No change in speech or balance. Hip pain is a 5/10. Advises to hold on taking the gabapentin and will sent to Dr. Pagan to review. * Audrey Corona - 04/17/2025 11:33 AM EDT [facility] PEN Top Smart Phrases: Complete the Following for ALL Patient Symptoms VCS Red Story Yellow Green Tool Call Back Number: (& caller's name if not the patient) [phone] Description of Symptoms: What symptoms are you experiencing? Hallucinations, shaking pt believes it is a reaction to gabapentin When did the symptoms start? 04/14 Has this happened before? No - symptoms started on 04/14 1) Enter the Reason for Call (TRIAGE) & RFC Comment (COLOR + Symptom) (Ex: TRIAGE - YELLOW, tick bite ) 2) Select the color-based designation below before taking next steps & documenting the outcome Red Call Designation & Outcome Red Symptom(s): Triage (Red + hallucinations + 04/14) Call Warm Transferred & TE Routed High Priority to Nurse: [id number] DO NOT DISCONNECT THE CALL Warm transfer live call to the Triage Team & Route TE HIGH Priority to the Individual Performing Triage documented in this encounter Plan of Treatment Not on file documented as of this encounter Visit Diagnoses Not on filedocumented in this encounter Additional Health Concerns Assessment Noted Time PHQ-2 Depression Total Score: 0 12/02/19 25 1:20 PM EDT documented as of this encounter Care Teams Food Technician Relationship Specialty Start Date End Date Sam Pagan DO [address] [place] [address] [email or web address] PCP - General Family Medicine 11/11/24 documented as of this encounter Additional Source Comments The information contained in this document represents components of the legal health record. It is not the complete legal health record.[facility]
--- OUTSIDE RECORDS SUMMARY | 2025-04-17 19:01 | XMS_ITS | Encounter Summary ---
Author Organization [facility] Address [address] [employer] [facility] [address] [place] [address] Phone Care Team Providers Care Base Brander Name Role Phone Sam Pagan DO Primary Care Provider [phone] Encounter Details Date Type Department Care Team (Late st Contact Info) Description 01/04/2025 Procedure Pass [facility], [address] [address] Social History Tobacco Use Types Packs/Day Years [...] documented as of this encounter Care Teams Base Brander Relationship Specialty Start Date End Date Sam Pagan DO [address] [place] [address] [email or web address] PCP - General Family Medicine 11/11/24 documented as of this encounter Additional Source Comments The information contained in this document represents components of the legal health record. It is not the complete legal health record.[facility]
--- OUTSIDE RECORDS SUMMARY | 2025-04-17 19:01 | XMS_ITS | Clinical Summary ---
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
--- OUTSIDE RECORDS SUMMARY | 2025-04-17 19:01 | XMS_ITS | Clinical Summary ---
Author Organization [facility] Address [address] [facility] [address] [place] [address] Phone Care Team Providers Care Senior Software Engineer Name Role Phone Sam Pagan DO Primary Care Provider [phone] Allergies Active Allergy Reactions Criticality Noted Date Comments Sulfamethoxazole-Trimethoprim 2024 Cefprozil Other (See Comments) Medium 01/26/2013 Dizzy Gabapentin Hallucinations High 04/17/2025 Gluten 12/01/2024 Iodinated Contrast Media 11/15/2024 Latex 11/15/2024 Levofloxacin 11/15/2024 Lisinopril Other (See Comments) 07/26/2009 cough Methocarbamol Dizziness 02/04/2017 Penicillins 11/15/2024 Medications amLODIPine (NORVASC) 2.5 MG tablet Take 2.5 mg by mouth daily. 11/08/19 25 Active losartan (COZAAR) 100 MG tablet Take 100 mg by mouth daily. 11/08/19 25 Active ny-xsqbalb-jaa -iron fm-FA-vitK (MULTI FOR HER) 18 mg [...] days. 7 each 1 01/06/20 25 Active estradioL (ESTRACE) 0.01 % (0.1 mg/gram) vaginal cream Place 2 g vaginally 3 (three) times a week. Active gabapentin (NEURONTIN) 100 MG capsule 2 at night and one in am 90 capsule 3 04/13/20 25 025 Discontin ued(No longer taking) Active Problems Problem Noted Date Diagnosed Date Abnormal finding on MRI of brain 03/20/2025 Osteonecrosis of right hip 03/17/2025 Assessment & Plan (03/17/2025 4:07 PM EDT): Progressive. 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 Type 2 diabetes mellitus 11/15/2024 Essential hypertension 11/15/2024 Assessment & Plan (03/17/2025 4:08 PM EDT): At goal continue current medication Assessment & Plan (12/01/2024 3:49 PM EDT): BP elevated today Recommend checking BP at home record and bring to next visit if still elevated adjust medicine Fibromyalgia 11/15/2024 Microalbuminuria due to type 2 diabetes mellitus 11/15/2024 Assessment & Plan (03/17/2025 4:08 PM EDT): Patient on losartan Continue to optimize BP and blood sugar Assessment & Plan (12/01/2024 2:02 PM EDT): Stable continue losartan Mild major depression 11/15/2024 Assessment & Plan (03/17/2025 4:07 PM EDT): Partial remission continue current medication Assessment & Plan (11/30/2024 9:12 PM EDT): In remission on Wellbutrin Mixed hyperlipidemia 11/15/2024 Assessment & Plan (03/17/2025 4:09 PM EDT): LDL 54 at goal continue current medications and diet Assessment & Plan (11/30/2024 9:10 PM EDT): At goal on stain Obese 11/15/2024 Type 2 diabetes mellitus, co ntrolled, with renal complications 11/15/2024 Uncontrolled type 2 diabetes mellitus with hyper glycemia 11/15/2024 Assessment & Plan (03/17/2025 3:29 PM EDT): Near goal with hemoglobin A1c 7.9 Assessment & Plan (12/01/2024 3:50 PM EDT): Patient not at goal declines other medications at this time continue work with diet and exercise we will readdress at next visit patient to get a hemoglobin A1c next week Resolved Problems Problem Noted Date Diagnosed Date Resolved Date Right hip pain 12/01/2024 02/28/2025 Assessment & Plan (12/01/2024 2:03 PM EDT): Patient is under managed care specialist x-ray of the hip and pelvis Follow-up with chiropractor as planned Encounters Date Type Department Care Team Description 04/17/2025 Orders Only [place] [address] [place] [address] Sam Pagan DO 04/17/[address] [place] [address] Sam Pagan DO Triage (Red + hallucinations + 04/14) 04/13/2025 3:00 PM EDT Office Visit [address] [place] [address] Sam Pagan DO Uncontrolled type 2 diabetes mellitus with hyperglycemia (Primary Dx); Essential hypertension; Type 2 diabetes mellitus with diabetic microalbuminuria, without long-term current use of insulin; Osteonecrosis of right hip; Microalbuminuria due to type 2 diabetes mellitus; Mild major depression; Fibromyalgia; Peroneal nerve palsy, unspecified laterality 03/27/[address] [address] Medina Saul Forms & Paperwork (Change of insurance) 03/20/2025 4:20 PM EDT Office Visit [address] [place] [address] Sam Pagan DO Osteonecrosis of right hip (Primary Dx); Essential hypertension; Microalbuminuria due to type 2 diabetes mellitus; Mixed hyperlipidemia; Uncontrolled type 2 diabetes mellitus with hyperglycemia; Mild major depression; Preoperative evaluation to rule out surgical contraindication; Abnormal finding on MRI of brain 03/02/2025 Procedure Pass OR Admitting Dept - Virtual Department [address] [place] [address] 01/28/2025 8:49 AM EDT - 01/28/2025 11:59 PM EDT Hospital Encounter [address] [address] Rahul Mejia MD Discharge Disposition: Home or Self Care 01/28/2025 8:49 AM EDT - 01/28/2025 11:59 PM EDT Hospital Encounter [address] [address] Rahul Mejia MD Discharge Disposition: Home or Self Care 01/23/[address] [place] [address] Sam Pagan DO 01/04/2025 Procedure Pass [address] [address] 01/04/2025 Procedure Pass [address] [address] from Last 3 Months Immunizations Immunization Administration [...] F) 04/13/2025 3:04 PM EDT Respiratory Rate 18 03/20/2025 4:24 PM EDT Oxygen Saturation 97% 04/13/2025 3:04 PM EDT Inhaled Oxygen Concentration - - Weight 68.3 kg (150 lb 9.6 oz) 03/20/2025 4:24 P M EDT Height 154.8 cm (5' 0.95 ) 01/28/2025 9:03 AM ED T Body Mass Index 28.5 01/28/2025 9:03 AM EDT Plan of Treatment Health Maintenance Due Date Last Done Comments OSTEOPOROSIS SCREENING INITIAL (ONE-TIME) 2006 Adult Td,Tdap Booster 01/12/2023 01/12/2013 , 12/20/2012, 08/28/2010, Additional history exists ZOSTER VACCINES (3 of 3) 07/15/2023 05/20/2023, 05/12/2011 DIABETIC EYE EXAM 11/15/2024 10/04/2010, 07/26/2009 INFLUENZA VACCINE (#1) 2025 , 03/25/2023, 03/12/2020, Additional history exists COVID-19 VACCINE ( season) 2025 04/06/2024, 04/17/2023, 04/07/2021, Additional history exists HEMOGLOBIN A1C 06/07/2025 12/06/2024, 07/21/2024 BLOOD PRESSURE 10/12/2025 04/13/2025 DEPRESSION SCREENING 12/01/2025 12/01/2024 CREATININE LEVEL 12/06/2025 [...] facet joint disease. No spinal canal stenosis. Uizr-ld-xxbvmuoy right and mild left foraminal stenosis. C4-C5: [...] joint disease. No significant spinal canal stenosis. Kiqa-tz-zflcgdln left and mild right foraminal stenosis. C7-T1: [...] ligamentum flavum thickening. Mild spinal canal stenosis. Cefl-ex-bodhxwcj foraminal stenosis. L5-S1: Disc bulge with a [...] of disc height at multiple levels from C3-U5hprwajw C6-C7. Spinal Cord: No kassandra cord compression [...] and facet joint disease. No spinal canal stenosis.Wdik-pt-mkeybkhj right and mild left foraminal stenosis. C4-C5: Disc/osteophyte complex. Uncovertebral arthropathy and facet jointdisease. Mild spinal canal stenosis. Moderate right and mild leftforaminal stenosis. C5-C6: Disc osteophyte complex. Uncovertebral arthropathy and facet jointdisease. Mild spinal canal stenosis. Moderate right and mild to moderateleft foraminal stenosis. C6-C7: Disc osteophyte complex. Uncovertebral arthropathy and facet jointdisease. No significant spinal canal stenosis. Yqbu-sw-lyiavpvv left andmild right foraminal stenosis. C7-T1: Mild [...] There is a Schmorl's node on the R1bssiypnt endplate and additional smaller Schmorl's node on [...] and ligamentum flavum thickening. Mild spinal canal stenosis.Nkdt-oa-bfepfgnd foraminal stenosis. L5-S1: Disc bulge with a [...] facet joint disease. No spinal canal stenosis. Hbby-jk-abbtrwue right and mild left foraminal stenosis. C4-C5: [...] joint disease. No significant spinal canal stenosis. Lbae-ny-ryrtkrij left and mild right foraminal stenosis. C7-T1: [...] ligamentum flavum thickening. Mild spinal canal stenosis. Jnew-hu-iytbcjpr foraminal stenosis. L5-S1: Disc bulge with a [...] of disc height at multiple levels from C3-T1snfteil C6-C7. Spinal Cord: No kassandra cord compression [...] and facet joint disease. No spinal canal stenosis.Bdxn-by-xgdovxss right and mild left foraminal stenosis. C4-C5: Disc/osteophyte complex. Uncovertebral arthropathy and facet jointdisease. Mild spinal canal stenosis. Moderate right and mild leftforaminal stenosis. C5-C6: Disc osteophyte complex. Uncovertebral arthropathy and facet jointdisease. Mild spinal canal stenosis. Moderate right and mild to moderateleft foraminal stenosis. C6-C7: Disc osteophyte complex. Uncovertebral arthropathy and facet jointdisease. No significant spinal canal stenosis. Wmin-ye-klzligkj left andmild right foraminal stenosis. C7-T1: Mild [...] There is a Schmorl's node on the Q9fijtgirj endplate and additional smaller Schmorl's node on [...] and ligamentum flavum thickening. Mild spinal canal stenosis.Ljrm-zw-eapbexib foraminal stenosis. L5-S1: Disc bulge with a [...] impression # 2. us Rahul Mejia MD [facility] MR XSPECIALTY Final Result * (ABNORMAL) Comprehensive metabolic panel (12/06/2024 12:31 PM EDT) SODIUM 142 133 - 146 mmol/L [facility] POTASSIUM 4.1 3.3 - 5.1 mmol/L [facility] CHLORIDE 102 96 - 108 mmol/L [facility] CO2 29 21 - 35 mmol/L [facility] BUN 34(H) 6 - 19 mg/dL [facility] CREATININE 0.90 0.5 - 1.5 mg/dL [facility] GLUCOSE 138(H) 70 - 99 mg/dL [facility] ALBUMIN 4.2 3.9 - 4.8 g/dL [facility] TOTAL PROTEIN 7.2 6.5 - 8.0 g/dL [facility] CALCIUM 10.0 8.4 - 10.3 mg/dL [facility] ALKALINE PHOSPHATASE 129(H) 39 - 117 U/L [facility] TOTAL BILIRUBIN 0.5 0.0 - 1.2 mg/dL [facility] AST 23 0 - 37 U/L [facility] ALT 25 0 - 40 U/L [facility] GLOBULIN 3.0 1 - 4.8 g/dL [facility] EGFR 63 >59 mL/min/1.7 3m2 [facility] Comment:Estimated glomerular filtration rate calculated using the CKD-EPI refit equation. ANION GAP 15 10 - 20 mmol/L [facility] Blood 12/06/2024 12:3 1 PM EDT 12/06/2024 12:33 PM EDT Sam Ruiz [employer] LAB BLOOD ORDERABLES Final Res ult [address] [address] * (ABNORMAL) Hemoglobin A1c (12/06/2024 12:31 PM EDT) HEMOGLOBIN A1C 7.9(H) 4.3 - 5.8 % [facility] Blood 12/06/2024 12:3 1 PM EDT 12/06/2024 12:33 PM EDT aSm Pagan DO LAB BLOOD ORDERABLES Final Res ult [facility] [address] [place], [place] [phone] from Last 3 Months or Most Recently Relevant to Health Maintenance Insurance MEDICARE PART A & B [facility] MEDICARE REPLACEMENT MEDICARE PART A & [facility] MEDICARE REPLACEMENT MEDICARE PART A & [facility] MEDICARE REPLACEMENT MEDICARE PART A & B MEDICARE REPLACEMENT Member Subscriber Plan / Payer (Ef fective 2025-Present) Name:Debby Boyd Relation to Subscriber:Self Name:DebPaula tianlis Payer ID:[id number] (NAIC) Group ID:Not on file Type:Medicare Address: [place] [id number] MEDICARE PART A & B MEDICARE REPLACEMENT MEDICARE PART A & B [facility] MEDICARE REPLACEMENT [facility] [place] [address] [facility] [place] [address] Care Teams Senior Software Engineer Relationship Specialty Start Date End Date Sam Pagan DO [address] [place] [address] [email or web address] PCP - General Family Medicine 11/11/24 Additional Source Comments The information contained in this document represents components of the legal health record. It is not the complete legal health record.[facility]
--- OUTSIDE RECORDS SUMMARY | 2025-04-17 19:01 | XMS_ITS | Encounter Summary ---
Author Organization [facility] Address [address] [employer] [place] [address] [place] [address] Phone Care Team Providers Care Public Health Training Assistant Name Role Phone Sam Pagan DO Primary Care Provider [phone] Encounter Details Date Type Department Care Team (Late st Contact Info) Description 01/04/2025 Procedure Pass [facility], [address] [address] Social History Tobacco Use Types Packs/Day Years [...] documented as of this encounter Care Teams Public Health Training Assistant Relationship Specialty Start Date End Date Sam Pagan DO [address] [place] [address] [email or web address] PCP - General Family Medicine 11/11/24 documented as of this encounter Additional Source Comments The information contained in this document represents components of the legal health record. It is not the complete legal health record.[facility]
== END 2025-04-17 16:09 | disposition home or self-care (01) ==
LOC: HO.US 16:08
PROVIDERS: Visit Provider Physician Assistant
DX: R60.9 Edema, unspecified (principal); Z86.718 Personal history of other venous thrombosis and embolism
CPT/HCPCS: 93970

== ENCOUNTER → 2025-04-17 16:11 | Outpatient (BNV) | payer OTHER, SELFPAY | PROVIDERS: Visit Provider Radiology Diagnostic Radiology | DX: R60.0 Localized edema (principal) | CPT/HCPCS: 93970 ==

== ENCOUNTER → 2025-06-13 10:48 | Outpatient (BNVA) | payer MEDICARE, SELFPAY | DX: Z01.818 Encounter for other preprocedural examination (principal) ==

== ENCOUNTER → 2025-06-19 11:13 | Outpatient (BNV) | payer OTHER, SELFPAY | PROVIDERS: PCP Family Medicine; Visit Provider Internal Medicine | DX: Z01.818 Encounter for other preprocedural examination (principal) | CPT/HCPCS: 93010 ==